=== PATIENT | male | born 1965 | race African-American/Black ===

== ENCOUNTER 2022-07-09 13:14 | Observation (INO) | payer MEDICARE, MEDICAID ==
[2022-07-09 14:19] LABS: PTT 27.8 sec (22.0-33.0); Prothrombin Time 11.3 sec (9.5-12.1)
[2022-07-09 14:27] LABS: Hemoglobin 15.8 g/dL (13.5-17.5); Mean Corpuscular Volume 80.4 fl (81.2-95.1); Red Blood Cell (RBC) Count 6.06 10x6/uL (4.32-5.72); White Blood Cell (WBC) Count 6.8 10x3/uL (3.5-10.5)
[2022-07-09 14:28] LABS: %Basophils 0.6 % (0.0-2.0); %Eosinophils 3.8 % (0.0-6.0); %Lymphocytes 8.5 % (18.0-47.0); %Monocytes 9.3 % (0.0-10.0); %Neutrophils 77.4 % (40.0-75.0); Mean Corpuscular HGB CONC 32.4 g/dL (32.0-36.0); Mean Corpuscular Hemoglobin 26.1 pg (27.0-33.0); Mean Platelet Volume 9.7 fl (7.4-10.4); Platelet Count 269 10x3/uL (130-400); RBC Distribution Width 15.6 % (11.5-14.5)
[2022-07-09 14:29] LABS: #Eosinphils 0.3 10x3/uL (0.0-0.5); #Monocytes 0.6 10x3/uL (0.0-1.1); #Neutrophils 5.3 10x3/uL (1.5-8.4)
[2022-07-09 14:43] LABS: ALT (SGPT) 42 U/L (8-55); AST (SGOT) 25 U/L (5-34); Albumin 3.9 g/dL (3.5-5.0); Alkaline Phosphatase 85 U/L (40-110); Anion Gap 13 mmol/L (10-20); BUN (Urea Nitrogen) 17 mg/dL (8.4-25.7); Bilirubin, Total 0.4 mg/dL (0.2-1.2); Calc. Creatinine Clearance 0 mL/min (70-130); Calcium 9.1 mg/dL (7.8-10.44); Carbon Dioxide 26 mmol/L (22-29); Chloride 101 mmol/L (98-107); Estimated GFR 53; Globulin 4.2 g/dL (2.4-3.5); Glucose 158 mg/dL (70-105); Potassium 3.7 mmol/L (3.5-5.1); Protein, Total 8.1 g/dL (6.0-8.3); Sodium 136 mmol/L (136-145)
[2022-07-09] MEDS ORDERED: Iopamidol 300 61% 100 ML VIAL FS ONE (14:44)
[2022-07-09] MEDS ORDERED: cefTRIAXone\\ROCEPHIN 2 GM VIAL ONE (16:13)
[2022-07-09] MEDS ORDERED: Acetaminophen 500 MG TAB ONE (16:13)
[2022-07-09] MEDS ORDERED: Vancomycin 1 GM VIAL ONE (16:13)
[2022-07-09] MEDS ORDERED: Ondansetron ODT 4 MG TAB PO PRN (16:33)
[2022-07-09] MEDS ORDERED: Ondansetron PF 4 MG/2 ML Vial IVP PRN (16:33)
[2022-07-09 16:43] LABS: Bilirubin Neg (Negative); Blood, Urine 250 (Negative); Glucose, Urine (Dipstick) Normal (Negative); Ketone, Urine Negative (Negative); Leukocyte 100 (Negative); Nitrite Negative (Negative); Protein, Urine (Dipstick) 30 mg/dl (Neg-Trace); Urobilinogen Normal mg/dL (Less than 2)
[2022-07-09 16:46] LABS: Clarity Hazy (Clear)
[2022-07-09 16:51] LABS: RBC/HPF 21-50 HPF (0-3)
[2022-07-09 16:54] LABS: Bacteria/HPF None Seen HPF (None Seen); Squamous Epithelial 0-3 HPF (0-3)
[2022-07-09] MEDS ORDERED: Dextrose 5% in Water 1,000 ML IV PRN (17:03)
[2022-07-09] MEDS ORDERED: HumaLOG 300 UNITS/3 ML VIAL SC PRN ×2 (17:03)
[2022-07-09] MEDS ORDERED: Dextrose 50% Abboject 50 ML SYRINGE SLOW IVP PRN (17:03)
[2022-07-09 17:15] LABS: SARS-CoV-2 NAA Rapid Test Not Detected (NotDetected)
[2022-07-09] MEDS: Sodium Chloride 0.9% 1,000 ML IV SCH (20:14)
[2022-07-09] MEDS: Oseltamivir 75 MG CAP PO SCH (20:14)
[2022-07-10] MEDS: Acetaminophen 325 MG TAB PO PRN ×2 (01:35→09:57)
[2022-07-10 04:54] LABS: Anion Gap 12 mmol/L (10-20); BUN (Urea Nitrogen) 13 mg/dL (8.4-25.7); Calc. Creatinine Clearance 92 mL/min (70-130); Calcium 8.6 mg/dL (7.8-10.44); Carbon Dioxide 24 mmol/L (22-29); Chloride 102 mmol/L (98-107); Estimated GFR 62; Glucose 145 mg/dL (70-105); Potassium 3.7 mmol/L (3.5-5.1); Sodium 134 mmol/L (136-145)
[2022-07-10 05:36] LABS: #Eosinphils 0.2 10x3/uL (0.0-0.5); #Monocytes 0.7 10x3/uL (0.0-1.1); #Neutrophils 3.9 10x3/uL (1.5-8.4); %Basophils 0.6 % (0.0-2.0); %Lymphocytes 11.1 % (18.0-47.0); %Monocytes 12.8 % (0.0-10.0); %Neutrophils 72.1 % (40.0-75.0); Hemoglobin 12.9 g/dL (13.5-17.5); Mean Corpuscular HGB CONC 32.7 g/dL (32.0-36.0); Mean Corpuscular Hemoglobin 25.8 pg (27.0-33.0); Mean Platelet Volume 9.6 fl (7.4-10.4); Platelet Count 230 10x3/uL (150-450); RBC Distribution Width 14.8 % (11.5-14.5); White Blood Cell (WBC) Count 5.3 10x3/uL (3.5-10.5)
[2022-07-10] MEDS: Sodium Chloride 0.9% 1,000 ML IV SCH ×2 (06:21→16:53)
[2022-07-10] MEDS ORDERED: Multivit, Therapeutic 1 TAB PO SCH (09:00)
[2022-07-10] MEDS ORDERED: Pantoprazole 40 MG VIAL IVP SCH (09:00)
[2022-07-10] MEDS ORDERED: PARoxetine 20 MG TAB PO SCH (09:00)
[2022-07-10] MEDS ORDERED: Carvedilol 12.5 MG TAB PO SCH (09:00)
[2022-07-10] MEDS: Oseltamivir 75 MG CAP PO SCH (09:57)
[2022-07-10] MEDS ORDERED: Loratadine 10 MG TAB PO PRN (10:14)
[2022-07-10] MEDS ORDERED: Benzonatate 100 MG CAP PO PRN (10:14)
[2022-07-10] MEDS ORDERED: Cepastat Lozenges 1 LOZ PO PRN (10:14)
[2022-07-10] MEDS ORDERED: Acetaminophen 500 MG TAB PO PRN (10:14)
[2022-07-10] MEDS ORDERED: Sodium Chloride 0.65% Nasal 44 ML BOT EA NARE PRN (10:14)
[2022-07-10] MEDS ORDERED: Artificial Tear Sol 15 ML BOT EA EYE PRN (10:14)
[2022-07-10] MEDS ORDERED: Acetaminophen 650 MG Suppository PR PRN (10:14)
[2022-07-10] MEDS ORDERED: Moisturizing Cream (Eucerin) 113 GM JAR TOP PRN (10:14)
[2022-07-10] MEDS ORDERED: cefTRIAXone\\ROCEPHIN 1 GM in Sodium Chloride 0.9% 100 ML IVPB SCH (16:00)
[2022-07-10 17:12] VITALS: BP 135/90; TEMP 98.6
[2022-07-10] MEDS ORDERED: Atorvastatin Calcium 40 MG TAB PO SCH (21:00)
[2022-07-10] MEDS ORDERED: traZODone HCl 50 MG TAB PO SCH (21:00)
== END 2022-07-10 18:45 ==
LOC: CSHERS 13:14 → CSHTELE 16:58
PROVIDERS: ADMIT Family Medicine; ATTEND Family Medicine
DX: R11.10 Vomiting, unspecified (principal); R19.7 Diarrhea, unspecified; E66.9 Obesity, unspecified; Z86.73 Personal history of transient ischemic attack (TIA), and cerebral infarction without residual deficits; F01.50 Vascular dementia, unspecified severity, without behavioral disturbance, psychotic disturbance, mood disturbance, and anxiety; I12.9 Hypertensive chronic kidney disease with stage 1 through stage 4 chronic kidney disease, or unspecified chronic kidney disease; E11.22 Type 2 diabetes mellitus with diabetic chronic kidney disease; N18.30 Chronic kidney disease, stage 3 unspecified; F32.A Depression, unspecified; E78.5 Hyperlipidemia, unspecified; Z79.4 Long term (current) use of insulin; Z79.899 Other long term (current) drug therapy; Z79.82 Long term (current) use of aspirin; Z20.822 Contact with and (suspected) exposure to COVID-19
CPT/HCPCS: 0240U; 71045; 74177; 80048; 80053; 82565; 82962 ×2; 83605; 85025 ×2; 85610; 85730; 86850; 86900; 86901; 87040; 87077; 87086; 87186; 94760; 96372; 96375; G0378 ×3; 36415; 36416; 81003; 81015; 82274; 96374; C9113; J0696; J1650; J3370; J3490; J7050; Q9967